=== PATIENT | male | born 2000 | race Caucasian/White ===

== ENCOUNTER 2024-11-11 17:35 | Emergency (ER) | payer OTHER, SELFPAY | END 2024-11-11 20:44 | disposition home or self-care (01) | LOC: ERS 17:35 | DX: M25.512 Pain in left shoulder (principal); F17.210 Nicotine dependence, cigarettes, uncomplicated; F17.290 Nicotine dependence, other tobacco product, uncomplicated; Y08.89XA Assault by other specified means, initial encounter | CPT/HCPCS: 99283 ==